=== PATIENT | female | born 1955 | race Caucasian/White ===

== ENCOUNTER → 2024-12-31 | Outpatient (CLI) | payer OTHER ==
[~2024-12-31] MED LIST: Aspirin325 MG PO; BIFLEX PO; CBD OIL PO; FISH OIL 1,2001 EAC7 PO; HYDCHL25 PO; LISI20 PO; MAGCHL64ER PO; METF500 PO; MULTI-VITAMIN1 EAC2 PO; PIOG30 PO; POTASSIUM PO; STEGLATRO5 MG PO; VITAMIN D310 MC4 PO
== END | disposition home or self-care (01) ==
LOC: LAB 14:37 → LAB SHORT 14:37
DX: R35.0 Frequency of micturition (principal)
CPT/HCPCS: 87077; 87086; 87186

== ENCOUNTER → 2025-01-08 | Outpatient (CLI) | payer OTHER | LOC: LAB SHORT 17:23 → LAB 17:23 | DX: N39.0 Urinary tract infection, site not specified (principal) | CPT/HCPCS: 87086 ==